=== PATIENT | female | born 1945 | race Caucasian/White ===

== ENCOUNTER → 2016-09-05 | Outpatient (CLI) | payer OTHER ==
[~2016-09-05] MED LIST: ALPR1TAB2 PO; DIAZ5TAB PO; FLUO20CA19 PO; OXYC-223 PO; blood pressure med
== END | disposition home or self-care (01) ==
LOC: RAD 11:29
PROVIDERS: ATTEND Nurse Practitioner
DX: S22.000A Wedge compression fracture of unspecified thoracic vertebra, initial encounter for closed fracture (principal)

== ENCOUNTER 2016-09-10 06:13 | Day surgery (SDC) | payer OTHER ==
[~2016-09-10] VITALS: Ht 170.2 cm; Wt 75.0 kg
[~2016-09-10 06:13] MED LIST changes: -ALPR1TAB2 PO; -OXYC-223 PO
[2016-09-10 07:17] VITALS: BP 150/97
[2016-09-10] MEDS ORDERED: ALPR1TAB2 PO (07:22)
[2016-09-10] MEDS ORDERED: OXYC-223 PO (07:22)
[2016-09-10] MEDS ORDERED: PLEASE ENTER HEIGHT AND WEIGHT MC SCH (07:30)
[2016-09-10] MEDS ORDERED: SODIUM CHLORIDE 0.9% 1,000 ML IV SCH (07:32)
[2016-09-10] MEDS ORDERED: MIDAZOLAM 1 MG/ML, 5ML ONE (07:38)
[2016-09-10] MEDS ORDERED: FENTANYL PF 100 MCG/2ML ONE (07:38)
[2016-09-10] MEDS ORDERED: NALOXONE 1 MG/ML, 2ML ONE (07:39)
[2016-09-10] MEDS ORDERED: FLUMAZENIL 0.1 MG/1 ML, 5ML ONE (07:39)
[2016-09-10] MEDS ORDERED: MEPERIDINE/PF 50 MG/ML ONE (07:58)
[2016-09-10] MEDS ORDERED: DIPHENHYDRAMINE 50 MG/ML, 1ML ONE (07:59)
[2016-09-10] MEDS ORDERED: CEFAZOLIN PMX 1GM/50ML 50 ML IVPB ONE (08:00)
[2016-09-10] MEDS ORDERED: LIDOCAINE 2%, 20ML ONE (08:11)
[2016-09-10] MEDS ORDERED: IBUPROFEN 600 MG TABLET ONE (09:38)
[2016-09-10] MEDS ORDERED: IBUPROFEN 600 MG TABLET PO ONE (10:00)
[2016-09-10] MEDS ORDERED: OXYcodone/APAP 10/325MG TABLET ONE (10:42)
[2016-09-10] MEDS ORDERED: OXYcodone/APAP 10/325MG TABLET PO ONE (11:00)
== END 2016-09-10 13:00 | disposition home or self-care (01) ==
LOC: OUT 06:13 → EDSTATUS 07:30 → OUT 13:00
PROVIDERS: ATTEND Nurse Practitioner
DX: S22.080A Wedge compression fracture of T11-T12 vertebra, initial encounter for closed fracture (principal); W01.0XXA Fall on same level from slipping, tripping and stumbling without subsequent striking against object, initial encounter; Y93.9 Activity, unspecified; Y92.9 Unspecified place or not applicable; Y99.9 Unspecified external cause status; Z87.891 Personal history of nicotine dependence
CPT/HCPCS: 22510; 99156; 99157; J0690; J1200; J2175; J2250; J3010; J3490; J7030; J2310

== ENCOUNTER 2018-01-26 14:28 | Inpatient (IN) | payer OTHER ==
[~2018-01-26] VITALS: Ht 167.6 cm; Wt 83.8 kg
[~2018-01-26 14:28] MED LIST changes: +ALPR1TAB2 PO; +OXYC-306 PO
[2018-01-26] MEDS ORDERED: LORazepam 2 MG/ML, 1ML ONE (14:48)
[2018-01-26] MEDS ORDERED: LORazepam 2 MG/ML, 1ML IVPush ONE (15:00)
[2018-01-26] MEDS ORDERED: SODIUM CHLORIDE 0.9% 1,000ML IVBOLUS ONE (15:00)
[2018-01-26] MEDS ORDERED: SODIUM CHLORIDE FLUSH 10ML SYR IVF ONE (15:00)
[2018-01-26 15:18] LABS: BASOPHILS # (AUTO) 0.03 x10^3/uL (0-0.1); BASOPHILS % (AUTO) 0 % (0-1); EOSINOPHILS % (AUTO) 0 % (1-7); LYMPHOCYTES # (AUTO) 1.19 x10^3/uL (1-3.4); LYMPHOCYTES % (AUTO) 12 % (22-44); MD NO; MEAN CORPUSCULAR VOLUME 88.1 fL (80-100); MEAN PLATELET VOLUME 8.1 fL (7.4-10.4); MONOCYTES # (AUTO) 0.49 x10^3/uL (0.2-0.8); MONOCYTES % (AUTO) 5 % (2-9); NEUTROPHILS # (AUTO) 8.55 x10^3/uL (1.8-6.8); NEUTROPHILS % (AUTO) 83 % (42-75); PLATELET COUNT 404 x10^3/uL (130-400); RED BLOOD COUNT 4.95 x10^6/uL (3.82-5.3); RED CELL DISTRIBUTION WIDTH 13.4 % (9.6-15.2)
[2018-01-26 15:29] LABS: ALANINE AMINOTRANSFERASE 29 U/L (12-78); ALBUMIN 3.8 g/dL (3.4-5.0); ANION GAP 12 mmol/L (5-15); CALCIUM 8.3 mg/dL (8.5-10.1); CHLORIDE 107 mmol/L (98-107); CREATININE 0.77 mg/dL (0.55-1.02)
[2018-01-26] MEDS ORDERED: ERYTHROMYCIN OPHTH 0.5%, 1GM RIGHTEYE ONE (15:30)
[2018-01-26 15:31] LABS: ALKALINE PHOSPHATASE 49 U/L (45-117); BILIRUBIN,TOTAL 0.4 mg/dL (0.2-1.0); TOTAL PROTEIN 7.1 g/dL (6.4-8.2)
[2018-01-26 16:23] LABS: MICROSCOPIC AUTO
[2018-01-26 16:26] LABS: CULTURE INDICATED? YES
[2018-01-26] MEDS ORDERED: DILTIAZEM 125 MG in SODIUM CHLORIDE 0.9% 100 ML IV PRN ×2 (17:00→20:30)
[2018-01-26] MEDS ORDERED: DILTIAZEM 5 MG/ML, 5ML IVPush ONE (17:00)
[2018-01-26] MEDS ORDERED: GABA300C10 PO (17:17)
[2018-01-26] MEDS ORDERED: FLUO20CA19 PO (17:17)
[2018-01-26] MEDS ORDERED: MUSCLE RELAXER PO (17:18)
[2018-01-26] MEDS ORDERED: METOCLOPRAMIDE 5 MG/ML, 2ML ONE (17:50)
[2018-01-26] MEDS ORDERED: METOCLOPRAMIDE 5 MG/ML, 2ML IVPush ONE (18:00)
[2018-01-26] MEDS ORDERED: ENOXAPARIN 80 MG/0.8 ML SQ ONE (20:00)
[2018-01-26] MEDS ORDERED: DILTIAZEM 5 MG/ML, 5ML IVPush PRN (20:30)
[2018-01-26] MEDS ORDERED: ONDANSETRON 2MG/ML, 2ML IVPush PRN (20:30)
[2018-01-26] MEDS ORDERED: PROMETHAZINE 25 MG/ML, 1ML IM PRN (20:30)
[2018-01-26] MEDS ORDERED: ACETAMINOPHEN 325 MG TABLET PO PRN (20:30)
[2018-01-26] MEDS ORDERED: [UNRECOGNIZED DRUG - REMARK] PO PRN (20:30)
[2018-01-26 22:04] VITALS: BP 119/77
[2018-01-26] MEDS: ALPRazolam 1MG TABLET PO SCH (22:20)
[2018-01-26] MEDS: ONDANSETRON ODT 4 MG PO PRN (22:20)
[2018-01-26] MEDS: NS + 20MEQ KCL 1,000 ML IV SCH (22:22)
[2018-01-26] MEDS: CEFTRIAXONE 1,000 MG in SODIUM CHLORIDE 0.9% 50 ML IV SCH (22:44)
[2018-01-26 23:21] LABS: TROPONIN I 0.287 ng/mL (0.000-0.045)
[2018-01-26] MEDS ORDERED: GABAPENTIN 300 MG CAPSULE PO SCH (23:30)
[2018-01-27 02:00] VITALS: BP 132/72
[2018-01-27] MEDS: ONDANSETRON ODT 4 MG PO PRN (03:45)
[2018-01-27] MEDS: NS + 20MEQ KCL 1,000 ML IV SCH ×2 (05:26→16:27)
[2018-01-27 05:40] LABS: BASOPHILS # (AUTO) 0.02 x10^3/uL (0-0.1); BASOPHILS % (AUTO) 0 % (0-1); EOSINOPHILS % (AUTO) 0 % (1-7); LYMPHOCYTES # (AUTO) 1.19 x10^3/uL (1-3.4); LYMPHOCYTES % (AUTO) 13 % (22-44); MD NO; MEAN CORPUSCULAR HGB CONC 34.2 g/dL (32.4-35.8); MEAN CORPUSCULAR VOLUME 87.9 fL (80-100); MEAN PLATELET VOLUME 8.5 fL (7.4-10.4); MONOCYTES # (AUTO) 0.57 x10^3/uL (0.2-0.8); MONOCYTES % (AUTO) 6 % (2-9); NEUTROPHILS # (AUTO) 7.53 x10^3/uL (1.8-6.8); NEUTROPHILS % (AUTO) 81 % (42-75); PLATELET COUNT 373 x10^3/uL (130-400); RED BLOOD COUNT 4.65 x10^6/uL (3.82-5.3)
[2018-01-27 05:52] LABS: ALBUMIN 3.7 g/dL (3.4-5.0); ANION GAP 12 mmol/L (5-15); CHLORIDE 109 mmol/L (98-107)
[2018-01-27 05:57] LABS: ALANINE AMINOTRANSFERASE 27 U/L (12-78); ALKALINE PHOSPHATASE 47 U/L (45-117); BILIRUBIN,TOTAL 0.4 mg/dL (0.2-1.0); CHOLESTEROL, TOTAL 264 mg/dL (140-239); CREATININE 0.65 mg/dL (0.55-1.02); TOTAL PROTEIN 6.9 g/dL (6.4-8.2); TRIGLYCERIDES 125 mg/dL (50-200); TROPONIN I 0.454 ng/mL (0.000-0.045); VLDL CHOLESTEROL 25 mg/dL (0-25)
[2018-01-27 06:02] LABS: CHOL/HDL RATIO 4.3; HDL CHOL % 23 % (28-40); HDL CHOLESTEROL (DIRECT) 62 mg/dL (40-60); LDL CHOLESTEROL,CALCULATED 177 mg/dL (54-169); LDL/HDL RATIO 2.9 (0.5-3.0); THYROID STIMULATING HORMONE 0.465 mIU/L (0.358-3.740)
[2018-01-27 08:31] VITALS: BP 122/74
[2018-01-27] MEDS: ALPRazolam 1MG TABLET PO SCH ×3 (08:42→23:03)
[2018-01-27] MEDS: FLUOXETINE 10 MG CAP PO SCH (08:42)
[2018-01-27] MEDS: ASPIRIN 81 MG TABLET EC PO SCH (08:43)
[2018-01-27] MEDS: DILTIAZEM 60 MG CAP.ER.12H PO SCH ×2 (08:43→21:02)
[2018-01-27] MEDS ORDERED: GABAPENTIN 300 MG CAPSULE PO SCH ×2 (09:00→21:00)
[2018-01-27 12:31] VITALS: BP 98/64
[2018-01-27] MEDS ORDERED: TIZANIDINE 4MG TABLET ONE (12:51)
[2018-01-27] MEDS: TIZANIDINE 4MG TABLET PO PRN (12:53)
[2018-01-27 18:41] VITALS: BP 94/66
[2018-01-27 21:00] VITALS: BP 122/75
[2018-01-27] MEDS ORDERED: ATORVASTATIN 20 MG TABLET PO SCH (21:00)
[2018-01-27] MEDS: CEFTRIAXONE 1,000 MG in SODIUM CHLORIDE 0.9% 50 ML IV SCH (22:55)
[2018-01-27 22:58] VITALS: BP 110/68
[2018-01-28] MEDS: NS + 20MEQ KCL 1,000 ML IV SCH (01:04)
[2018-01-28 01:17] VITALS: BP 91/53
[2018-01-28 03:13] VITALS: BP 110/69
[2018-01-28 06:03] LABS: TROPONIN I 0.201 ng/mL (0.000-0.045)
[2018-01-28 06:50] VITALS: BP 111/69
[2018-01-28] MEDS ORDERED: TIZANIDINE 2MG TABLET ONE ×2 (08:02→14:44)
[2018-01-28] MEDS: ASPIRIN 81 MG TABLET EC PO SCH (08:10)
[2018-01-28] MEDS: FLUOXETINE 10 MG CAP PO SCH (08:11)
[2018-01-28] MEDS: DILTIAZEM 60 MG CAP.ER.12H PO SCH (08:11)
[2018-01-28] MEDS: TIZANIDINE 4MG TABLET PO PRN ×2 (08:11→14:46)
[2018-01-28] MEDS: ALPRazolam 1MG TABLET PO SCH ×2 (08:11→16:00)
[2018-01-28] MEDS ORDERED: REGADENOSON 0.4 MG/5 ML SYRINGE ONE (08:45)
[2018-01-28 12:55] VITALS: BP 100/58
[2018-01-28] MEDS ORDERED: DILT60CA PO (14:47)
[2018-01-28] MEDS ORDERED: ATOR20TA9 PO (14:47)
[2018-01-28] MEDS ORDERED: ASPI-621 PO (14:47)
[2018-01-28] MEDS: CEFTRIAXONE 1,000 MG in SODIUM CHLORIDE 0.9% 50 ML IV SCH (16:12)
== END 2018-01-28 18:17 | disposition home or self-care (01) | DRG 690 ==
LOC: ED 19:15 → EDIP 19:42 → SUATTDRO 20:00 → 5SO 21:12
PROVIDERS: ADMIT Hospitalist; ATTEND Family Medicine
DX: N39.0 Urinary tract infection, site not specified (principal); D68.59 Other primary thrombophilia; A08.4 Viral intestinal infection, unspecified; I48.91 Unspecified atrial fibrillation; G89.29 Other chronic pain; M54.9 Dorsalgia, unspecified; F41.9 Anxiety disorder, unspecified; I25.2 Old myocardial infarction; Z79.899 Other long term (current) drug therapy
CPT/HCPCS: 36415; 71045; 74021; 78452; 80053; 80061; 81001; 83605; 83690; 83735; 84100; 84443; 84484; 85025; 87086; 93005; 93017; 93306; 96361; 96374; 96375; G0378; J0696; J1650; J2785; J3480; Q0162; A9502; C9898; J2060; J2765; J7030

== ENCOUNTER 2019-12-02 22:41 | Inpatient (IN) | payer MEDICARE ==
[~2019-12-02] VITALS: Ht 167.6 cm; Wt 84.0 kg
[~2019-12-02 22:41] MED LIST changes: +ASPI81TA45 PO; +ATOR20TA37 PO; +DILT60CA PO; +GABA300C10 PO; +MUSCLE RELAXER PO
--- NOTE | 2019-12-02 22:53 | NUR ---
PT BIB EMS WITH C/O LOW BACK PAIN X2 DAYS, HAS HX OF SPINAL SUGERIES AND LOW BACK PAIN, ALONG WITH "KIDNEY PROBLEMS". PT REPORTS CURRENT FLANK PAIN, DENIES CP OR N/V/D. PT DENIES ANY OTHER C/O AT HIS TIME. 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 BS 104 PER EMS. PT CONNECTED TO MONITORING, CALL LIGHT WITHIN REACH, ALL SAFETY MEASURES IN PLACE.
--- NOTE | 2019-12-02 23:11 | NUR ---
REPORT FROM SAMUEL ORTEGA. PT ASSISTED TO BEDSIDE COMMODE. UA WALKED TO LAB. VSS. CALL LIGHT IN REACH
[2019-12-02 23:17] LABS: MICROSCOPIC NOT IND
[2019-12-02 23:38] LABS: ALANINE AMINOTRANSFERASE 25 U/L (12-78); ALBUMIN 3.8 g/dL (3.4-5.0); ANION GAP 8 mmol/L (5-15); CALCIUM 9.3 mg/dL (8.5-10.1); CHLORIDE 99 mmol/L (98-107); CREATININE 1.04 mg/dL (0.55-1.02)
[2019-12-02 23:39] LABS: MEAN CORPUSCULAR HEMOGLOBIN 28.6 pg (27.0-34.8); MEAN CORPUSCULAR HGB CONC 32.5 g/dL (32.4-35.8); MEAN CORPUSCULAR VOLUME 88.2 fL (80-100); MEAN PLATELET VOLUME 8.1 fL (7.4-10.4); PLATELET COUNT 346 x10^3/uL (130-400); RED BLOOD COUNT 5.13 x10^6/uL (3.82-5.3); RED CELL DISTRIBUTION WIDTH 14.8 % (9.6-15.2)
[2019-12-02 23:40] LABS: ALKALINE PHOSPHATASE 71 U/L (45-117); BILIRUBIN,TOTAL 0.3 mg/dL (0.2-1.0); TOTAL PROTEIN 7.7 g/dL (6.4-8.2)
[2019-12-03 00:10] LABS: MD YES
[2019-12-03 00:16] LABS: EOS#(MANUAL) 0.21 x10^3/uL (0.0-0.4); EOS% (MANUAL) 2 % (1-7); LYMPH#(MANUAL) 4.88 x10^3/uL (1-3.4); LYMPHS% (MANUAL) 46 % (22-44); MONOS#(MANUAL) 0.64 x10^3/uL (0.3-2.7); MONOS% (MANUAL) 6 % (2-9); REACTIVE LYMPHS # (MANUAL) 0.85 x10^3/uL (0-0); REACTIVE LYMPHS % (MANUAL) 8 % (0-0); SEG#(MANUAL) 4.03 x10^3/uL (1.8-6.8); SEGS% (MANUAL) 38 % (42-75)
[2019-12-03 00:17] LABS: <PLATELET ESTIMATE> ADEQUATE; <RBC MORPHOLOGY> NORMAL
[2019-12-03 00:18] LABS: <PLT MORPHOLOGY> NORMAL PLT MORPH
--- NOTE | 2019-12-03 00:39 | NUR ---
PT ASSISTED TO BEDSIDE COMMODE WITH HELP OF TECH. PT COMPLAINING OF RADIATING BACK PAIN. MD AT BEDSIDE TO TALK TO PT.
--- NOTE | 2019-12-03 00:54 | NUR ---
PT TO CT
[2019-12-03] MEDS ORDERED: ONDANSETRON 2MG/ML, 2ML IVPush PRN ×2 (02:00→03:00)
[2019-12-03] MEDS ORDERED: MORPHINE SULFATE 4 MG/ML, 1ML IVPush PRN (02:00)
[2019-12-03] MEDS ORDERED: hydrALAzine 20 MG/ML, 1ML IVPush PRN (03:00)
[2019-12-03] MEDS ORDERED: BISACODYL 10 MG SUPP PR PRN (03:00)
[2019-12-03] MEDS ORDERED: LIDODERM 5% PATCH TD PRN (03:00)
[2019-12-03] MEDS ORDERED: ACETAMINOPHEN 325 MG TABLET PO PRN (03:00)
[2019-12-03] MEDS ORDERED: HYDROmorphone 2 MG/ML, 1ML IVPush PRN (03:00)
[2019-12-03 06:29] VITALS: BP 144/84
[2019-12-03] MEDS: ASPIRIN 81 MG TABLET EC PO SCH (08:41)
[2019-12-03] MEDS: GABAPENTIN 300 MG CAPSULE PO SCH (08:41)
[2019-12-03] MEDS: DILTIAZEM 60 MG CAP.ER.12H PO SCH ×2 (08:41→20:16)
[2019-12-03] MEDS: SENNA/DOCUSATE TABLET PO SCH (08:41)
[2019-12-03] MEDS: FLUOXETINE 10 MG CAP PO SCH (08:41)
[2019-12-03] MEDS: ALPRazolam 1MG TAB PO PRN ×2 (08:44→23:55)
[2019-12-03] MEDS: CYCLOBENZAPRINE 10 MG TABLET PO PRN (10:02)
[2019-12-03 14:36] VITALS: BP 127/77
[2019-12-03 20:07] VITALS: BP 102/62
[2019-12-03] MEDS: ATORVASTATIN 20 MG TABLET PO SCH (20:16)
[2019-12-04 02:58] VITALS: BP 116/74
[2019-12-04 04:12] LABS: BASOPHILS # (AUTO) 0.03 x10^3/uL (0-0.1); BASOPHILS % (AUTO) 1 % (0-1); EOSINOPHILS % (AUTO) 2 % (1-7); LYMPHOCYTES # (AUTO) 2.25 x10^3/uL (1-3.4); LYMPHOCYTES % (AUTO) 34 % (22-44); MD NO; MEAN CORPUSCULAR HEMOGLOBIN 29.2 pg (27.0-34.8); MEAN CORPUSCULAR HGB CONC 33.3 g/dL (32.4-35.8); MEAN CORPUSCULAR VOLUME 87.8 fL (80-100); MEAN PLATELET VOLUME 8.3 fL (7.4-10.4); MONOCYTES # (AUTO) 0.93 x10^3/uL (0.2-0.8); MONOCYTES % (AUTO) 14 % (2-9); NEUTROPHILS # (AUTO) 3.22 x10^3/uL (1.8-6.8); NEUTROPHILS % (AUTO) 49 % (42-75); PLATELET COUNT 336 x10^3/uL (130-400); RED BLOOD COUNT 5.29 x10^6/uL (3.82-5.3); RED CELL DISTRIBUTION WIDTH 14.7 % (9.6-15.2)
[2019-12-04 04:17] LABS: ANION GAP 6 mmol/L (5-15); CALCIUM 9.4 mg/dL (8.5-10.1); CHLORIDE 101 mmol/L (98-107); CREATININE 0.94 mg/dL (0.55-1.02)
[2019-12-04 07:19] VITALS: BP 109/68
[2019-12-04] MEDS: GABAPENTIN 300 MG CAPSULE PO SCH (08:01)
[2019-12-04] MEDS: ASPIRIN 81 MG TABLET EC PO SCH (08:01)
[2019-12-04] MEDS: FLUOXETINE 10 MG CAP PO SCH (08:01)
[2019-12-04] MEDS: SENNA/DOCUSATE TABLET PO SCH (08:01)
[2019-12-04] MEDS: DILTIAZEM 60 MG CAP.ER.12H PO SCH ×2 (08:02→20:26)
[2019-12-04 13:18] VITALS: BP 130/61
[2019-12-04] MEDS: CYCLOBENZAPRINE 10 MG TABLET PO PRN (13:44)
[2019-12-04 19:19] VITALS: BP 116/77
[2019-12-04] MEDS ORDERED: ENOXAPARIN 40 MG/0.4 ML SQ SCH (19:30)
[2019-12-04] MEDS: OXYcodone IR 5MG TABLET PO PRN (19:39)
[2019-12-04] MEDS: ATORVASTATIN 20 MG TABLET PO SCH (20:26)
[2019-12-05] MEDS: CYCLOBENZAPRINE 10 MG TABLET PO PRN (00:08)
[2019-12-05 03:06] VITALS: BP 127/78
[2019-12-05 05:11] LABS: BASOPHILS # (AUTO) 0.05 x10^3/uL (0-0.1); BASOPHILS % (AUTO) 1 % (0-1); EOSINOPHILS # (AUTO) 0.09 x10^3/uL (0-0.4); EOSINOPHILS % (AUTO) 1 % (1-7); LYMPHOCYTES % (AUTO) 34 % (22-44); MD NO; MEAN CORPUSCULAR HEMOGLOBIN 29.1 pg (27.0-34.8); MEAN CORPUSCULAR HGB CONC 33.2 g/dL (32.4-35.8); MEAN CORPUSCULAR VOLUME 87.6 fL (80-100); MEAN PLATELET VOLUME 8.3 fL (7.4-10.4); MONOCYTES # (AUTO) 0.82 x10^3/uL (0.2-0.8); MONOCYTES % (AUTO) 13 % (2-9); NEUTROPHILS # (AUTO) 3.35 x10^3/uL (1.8-6.8); NEUTROPHILS % (AUTO) 52 % (42-75); PLATELET COUNT 334 x10^3/uL (130-400); RED BLOOD COUNT 5.32 x10^6/uL (3.82-5.3); RED CELL DISTRIBUTION WIDTH 14.6 % (9.6-15.2)
[2019-12-05 05:21] LABS: CHLORIDE 98 mmol/L (98-107)
[2019-12-05 05:25] LABS: ANION GAP 10 mmol/L (5-15); CALCIUM 8.7 mg/dL (8.5-10.1)
[2019-12-05] MEDS: OXYcodone IR 5MG TABLET PO PRN (05:58)
[2019-12-05 07:30] VITALS: BP 106/68
[2019-12-05] MEDS: ASPIRIN 81 MG TABLET EC PO SCH (08:06)
[2019-12-05] MEDS: SENNA/DOCUSATE TABLET PO SCH (08:06)
[2019-12-05] MEDS: FLUOXETINE 10 MG CAP PO SCH (08:06)
[2019-12-05] MEDS: GABAPENTIN 300 MG CAPSULE PO SCH (08:06)
[2019-12-05] MEDS: DILTIAZEM 60 MG CAP.ER.12H PO SCH (08:06)
[2019-12-05] MEDS ORDERED: ACET325T26 PO (13:42)
[2019-12-05 14:30] VITALS: BP 144/92
== END 2019-12-05 15:11 | disposition home health service (06) | DRG 543 ==
LOC: ED 12-03 00:16 → INTOOBSV 12-03 02:03 → EDIP 12-03 02:03 → OBSVTOIN 12-03 02:03 → 4NE 12-03 02:50
PROVIDERS: ADMIT Hospitalist; ATTEND Hospitalist
DX: M48.56XA Collapsed vertebra, not elsewhere classified, lumbar region, initial encounter for fracture (principal); E87.1 Hypo-osmolality and hyponatremia; S39.012A Strain of muscle, fascia and tendon of lower back, initial encounter; E78.5 Hyperlipidemia, unspecified; E87.6 Hypokalemia; F17.200 Nicotine dependence, unspecified, uncomplicated; G89.29 Other chronic pain; I10 Essential (primary) hypertension; I48.91 Unspecified atrial fibrillation; K59.00 Constipation, unspecified; F32.9 Major depressive disorder, single episode, unspecified; F41.9 Anxiety disorder, unspecified; I25.2 Old myocardial infarction; Z90.49 Acquired absence of other specified parts of digestive tract; Z79.899 Other long term (current) drug therapy; Z79.84 Long term (current) use of oral hypoglycemic drugs; Z79.82 Long term (current) use of aspirin; Z79.01 Long term (current) use of anticoagulants; X58.XXXA Exposure to other specified factors, initial encounter; Y93.89 Activity, other specified; Y92.89 Other specified places as the place of occurrence of the external cause; Y99.8 Other external cause status; Z66 Do not resuscitate
CPT/HCPCS: 36415; 72131; 72148; 80048; 80053; 81003; 83690; 85025; 93005; G0378; J1650

== ENCOUNTER 2020-04-19 11:07 | Emergency (ER) | payer MEDICARE ==
[~2020-04-19] VITALS: Ht 167.6 cm; Wt 82.0 kg
[~2020-04-19 11:07] MED LIST changes: +ACET325T26 PO
[2020-04-19 11:53] LABS: BASOPHILS % (AUTO) 1 % (0-1); EOSINOPHILS % (AUTO) 2 % (1-7); LYMPHOCYTES % (AUTO) 25 % (22-44); MEAN CORPUSCULAR HEMOGLOBIN 30.2 pg (27.0-34.8); MEAN CORPUSCULAR HGB CONC 33.8 g/dL (32.4-35.8); MONOCYTES % (AUTO) 9 % (2-9); NEUTROPHILS % (AUTO) 64 % (42-75); PLATELET COUNT 406 x10^3/uL (130-400); RED BLOOD COUNT 4.79 x10^6/uL (3.82-5.3); RED CELL DISTRIBUTION WIDTH 14.4 % (9.6-15.2)
[2020-04-19 11:55] LABS: MD NO
[2020-04-19 12:02] LABS: ALBUMIN 3.7 g/dL (3.4-5.0); ANION GAP 5 mmol/L (5-15); CALCIUM 8.4 mg/dL (8.5-10.1); CHLORIDE 109 mmol/L (98-107); CREATININE 0.93 mg/dL (0.55-1.02)
[2020-04-19] MEDS ORDERED: BUPIVACAINE 0.25% ONE (12:06)
--- NOTE | 2020-04-19 12:19 | NUR ---
PT TO CT
[2020-04-19] MEDS ORDERED: BUPIVACAINE/PF 0.5% INFIL ONE (12:30)
--- NOTE | 2020-04-19 12:35 | NUR ---
PT BACK FROM IMAGING
--- NOTE | 2020-04-19 13:10 | NUR ---
pt wants pn. meds bfore xrays- rn informed
[2020-04-19] MEDS ORDERED: MORPHINE SULFATE 4 MG/ML, 1ML ONE (13:15)
[2020-04-19] MEDS ORDERED: morphine SULFATE 10 MG/ML, 1ML IV ONE (13:30)
--- NOTE | 2020-04-19 14:54 | NUR ---
FAMILY TO [employer] FOR DC. TO GET WRIST SPLINT AND KNEE WRAP
[2020-04-19] MEDS ORDERED: HYDROcodone/APAP 5/325 TABLET ONE (15:51)
[2020-04-19] MEDS ORDERED: HYDROcodone/APAP 5/325 TABLET PO ONE (16:00)
[2020-04-19 16:41] VITALS: BP 162/81
--- NOTE | 2020-04-19 16:41 | NUR ---
Patient/Caregiver given discharge instructions and they have confirmed that they understand the instructions. Patient ambulatory with steady gait.
== END 2020-04-19 16:46 | disposition home or self-care (01) ==
LOC: ED 16:30
DX: S52.571A Other intraarticular fracture of lower end of right radius, initial encounter for closed fracture (principal); S52.601A Unspecified fracture of lower end of right ulna, initial encounter for closed fracture; S81.012A Laceration without foreign body, left knee, initial encounter; S00.11XA Contusion of right eyelid and periocular area, initial encounter; S09.90XA Unspecified injury of head, initial encounter; I48.91 Unspecified atrial fibrillation; I10 Essential (primary) hypertension; W01.0XXA Fall on same level from slipping, tripping and stumbling without subsequent striking against object, initial encounter; Y93.89 Activity, other specified; Y92.512 Supermarket, store or market as the place of occurrence of the external cause; Y99.8 Other external cause status
CPT/HCPCS: 12032; 36415; 70450; 70486; 71045; 72125; 72170; 73110; 73200; 73564; 80048; 82040; 85025; 96374; 99285; J2270; 29125

== ENCOUNTER 2020-04-24 06:49 | Day surgery (SDC) | payer MEDICARE, MEDICAID ==
[~2020-04-24] VITALS: Ht 170.2 cm; Wt 83.7 kg
[~2020-04-24 06:49] MED LIST changes: +BUPIVACAINE/PF 0.5% ONE; +LIDOCAINE/PF 1%, 30ML ONE
[2020-04-24] MEDS ORDERED: ASPI81TA45 PO (07:58)
[2020-04-24] MEDS ORDERED: DILT60CA PO (07:58)
[2020-04-24] MEDS ORDERED: ATOR20TA37 PO (07:58)
[2020-04-24] MEDS ORDERED: LACTATED RINGERS 1,000 ML IV SCH (08:00)
[2020-04-24] MEDS ORDERED: CHLORHEXIDINE 15 ML UDC MM ONE (08:00)
[2020-04-24 08:01] VITALS: BP 150/85
[2020-04-24] MEDS ORDERED: FENTANYL PF 100 MCG/2ML ONE ×2 (08:14→10:44)
[2020-04-24] MEDS ORDERED: MIDAZOLAM 1 MG/ML, 2ML ONE (08:14)
[2020-04-24] MEDS ORDERED: METOPROLOL 1 MG/ML, 5ML ONE (09:14)
[2020-04-24] MEDS ORDERED: DEXAMETHASONE 4 MG/ML, 1ML ONE (09:14)
[2020-04-24] MEDS ORDERED: PROPOFOL 10 MG/ML, 20ML ONE (09:14)
[2020-04-24] MEDS ORDERED: ONDANSETRON 2MG/ML, 2ML ONE (09:14)
[2020-04-24] MEDS ORDERED: hydrALAzine 20 MG/ML, 1ML ONE (09:14)
[2020-04-24] MEDS ORDERED: CEFAZOLIN 1,000 MG ONE (09:14)
[2020-04-24] MEDS ORDERED: OXYcodone 5 MG/5 ML ORAL.SOL UDC PO PRN (10:30)
[2020-04-24] MEDS ORDERED: MEPERIDINE/PF 25MG/0.5ML IVPush PRN (10:30)
[2020-04-24] MEDS ORDERED: ACETAMINOPHEN 325 MG TABLET PO PRN (10:30)
[2020-04-24] MEDS ORDERED: HYDROmorphone 1 MG/ML, 1ML INJ IVPush PRN (10:30)
[2020-04-24] MEDS ORDERED: hydrALAzine 20 MG/ML, 1ML IV PRN (10:30)
[2020-04-24] MEDS ORDERED: METOCLOPRAMIDE 5 MG/ML, 2ML IVPush PRN (10:30)
[2020-04-24] MEDS ORDERED: LABETALOL 5MG/ML, 20ML IV PRN (10:30)
[2020-04-24] MEDS ORDERED: ONDANSETRON 2MG/ML, 2ML IVPush PRN (10:30)
[2020-04-24] MEDS ORDERED: DIPHENHYDRAMINE 50 MG/ML, 1ML IVPush PRN (10:30)
[2020-04-24] MEDS: FENTANYL PF 100 MCG/2ML IV PRN ×2 (10:52→11:02)
[2020-04-24] MEDS ORDERED: LABETALOL 5MG/ML, 20ML ONE (11:05)
[2020-04-24] MEDS ORDERED: ACETAMINOPHEN 650 MG/20.3 ML UDC ONE (11:08)
[2020-04-24] MEDS ORDERED: OXYcodone 5 MG/5 ML ORAL.SOL UDC ONE (11:08)
[2020-04-24] MEDS ORDERED: KETOROLAC 30 MG/1 ML ONE (11:17)
[2020-04-24] MEDS ORDERED: KETOROLAC 30 MG/1 ML IVPush ONE (11:30)
== END 2020-04-24 13:45 | disposition home or self-care (01) ==
LOC: OUT 06:49
PROVIDERS: ATTEND Orthopaedic Surgery Hand Surgery
DX: S52.571A Other intraarticular fracture of lower end of right radius, initial encounter for closed fracture (principal); I10 Essential (primary) hypertension; I48.91 Unspecified atrial fibrillation; F32.9 Major depressive disorder, single episode, unspecified; Z20.828 Contact with and (suspected) exposure to other viral communicable diseases; Z79.1 Long term (current) use of non-steroidal anti-inflammatories (NSAID); Z79.899 Other long term (current) drug therapy; W18.09XA Striking against other object with subsequent fall, initial encounter; Y93.01 Activity, walking, marching and hiking; Y92.89 Other specified places as the place of occurrence of the external cause; Y99.8 Other external cause status
CPT/HCPCS: 25609; 73100; 87635; 93005; C1713; J0360; J0690; J1100; J1885; J2250; J2405; J2704; J3010; J7120; 76000

== ENCOUNTER 2021-01-06 14:46 | Outpatient (CLI) | payer MEDICARE, MEDICAID ==
[~2021-01-06 14:46] MED LIST changes: -BUPIVACAINE/PF 0.5% ONE; -LIDOCAINE/PF 1%, 30ML ONE; -OXYC-306 PO; +OXYC1TAB16 PO
[2021-01-06 15:40] LABS: BASOPHILS % (AUTO) 1 % (0-1); EOSINOPHILS % (AUTO) 2 % (1-7); LYMPHOCYTES % (AUTO) 36 % (22-44); MEAN CORPUSCULAR HEMOGLOBIN 28.1 pg (27.0-34.8); MEAN CORPUSCULAR HGB CONC 33.7 g/dL (32.4-35.8); MEAN PLATELET VOLUME 7.7 fL (7.4-10.4); MONOCYTES % (AUTO) 11 % (2-9); NEUTROPHILS % (AUTO) 49 % (42-75); PLATELET COUNT 429 x10^3/uL (130-400); RED BLOOD COUNT 5.02 x10^6/uL (3.82-5.3); RED CELL DISTRIBUTION WIDTH 15.1 % (9.6-15.2)
[2021-01-06 15:53] LABS: ALANINE AMINOTRANSFERASE 30 U/L (12-78); ALBUMIN 3.5 g/dL (3.4-5.0); ANION GAP 7 mmol/L (5-15); CALCIUM 8.7 mg/dL (8.5-10.1); CHLORIDE 105 mmol/L (98-107); CHOLESTEROL, TOTAL 286 mg/dL (140-239); CREATININE 0.81 mg/dL (0.55-1.02)
[2021-01-06 15:53] LABS: MICROSCOPIC AUTO
[2021-01-06 16:04] LABS: ALKALINE PHOSPHATASE 55 U/L (45-117); BILIRUBIN,TOTAL 0.3 mg/dL (0.2-1.0); CHOL/HDL RATIO 5.4; HDL CHOL % 19 % (28-40); HDL CHOLESTEROL (DIRECT) 53 mg/dL (40-60); TOTAL PROTEIN 6.9 g/dL (6.4-8.2); TRIGLYCERIDES 423 mg/dL (50-200)
== END 2021-01-06 23:59 | disposition home or self-care (01) ==
LOC: LAB 14:46
PROVIDERS: ATTEND Family Medicine
DX: N39.0 Urinary tract infection, site not specified (principal); R79.9 Abnormal finding of blood chemistry, unspecified; R53.83 Other fatigue
CPT/HCPCS: 36415; 80053; 80061; 81001; 83036; 84443; 85025; 86803